=== PATIENT | male | born 1970 | race Hispanic/Latino ===

== ENCOUNTER 2022-09-10 12:08 | Emergency (ER) | payer MEDICARE, OTHER ==
[~2022-09-10] VITALS: Ht 180.3 cm; Wt 117.9 kg
[~2022-09-10 12:08] MED LIST: LEVO750T39 PO; METF-445 PO; SIMV-342 PO
[2022-09-10] MEDS ORDERED: CLONIDINE HCL 0.2 MG TABLET PO ONE (13:28)
[2022-09-10 13:38] VITALS: BP 195/90
== END 2022-09-10 13:58 | disposition home or self-care (01) ==
LOC: EDH 12:08
DX: T82.590A Other mechanical complication of surgically created arteriovenous fistula, initial encounter (principal); I12.0 Hypertensive chronic kidney disease with stage 5 chronic kidney disease or end stage renal disease; E11.22 Type 2 diabetes mellitus with diabetic chronic kidney disease; N18.6 End stage renal disease; Z79.84 Long term (current) use of oral hypoglycemic drugs; Z99.2 Dependence on renal dialysis; Z79.899 Other long term (current) drug therapy; Y65.8 Other specified misadventures during surgical and medical care; Y92.89 Other specified places as the place of occurrence of the external cause